=== PATIENT | female | born 1940 | race Caucasian/White ===

== ENCOUNTER 2022-10-18 06:22 | Emergency (ER) | payer MEDICARE ==
[~2022-10-18] VITALS: Ht 165.1 cm; Wt 80.0 kg
[2022-10-18 06:25] VITALS: BP 160/89
[2022-10-18] MEDS ORDERED: methylPREDNISolone sod succ 125mg/2ml vial IV ONE (07:20)
[2022-10-18] MEDS ORDERED: normal saline 1000ml 1,000 ML IV ONE (07:20)
[2022-10-18] MEDS ORDERED: diphenhydrAMINE 50 mg/ml inj IV ONE (07:20)
[2022-10-18] MEDS ORDERED: bacitracin 15gm ointment TP ONE (07:20)
--- NOTE | 2022-10-18 07:31 | NUR ---
WOUND CLEANED AND DRESSED
[2022-10-18] MEDS ORDERED: CEPH-585 PO (08:18)
== END 2022-10-18 08:30 | disposition home or self-care (01) ==
LOC: ER 06:23
DX: S41.112A Laceration without foreign body of left upper arm, initial encounter (principal); W19.XXXA Unspecified fall, initial encounter; Y93.89 Activity, other specified; Y92.89 Other specified places as the place of occurrence of the external cause; Y99.8 Other external cause status
CPT/HCPCS: 73090; 99284; A6258